=== PATIENT | male | born 1950 | race Caucasian/White ===

== ENCOUNTER 2023-05-29 14:08 | Outpatient (REF) | payer MEDICARE, OTHER, SELFPAY ==
[2023-05-29 16:13] LABS: Vitamin B12 486 pg/mL (200-900)
[2023-05-31 10:43] LABS: Lyme Abs Screen <0.90 index
== END 2023-05-29 14:09 | disposition home or self-care (01) ==
LOC: HO.LAB 14:08
PROVIDERS: PCP Internal Medicine; Visit Provider Psychiatry & Neurology Neurology
DX: G93.40 Encephalopathy, unspecified (principal)
CPT/HCPCS: 36415; 82607; 86617; 86618

== ENCOUNTER 2023-07-10 12:43 | Outpatient (REF) | payer MEDICARE, OTHER, SELFPAY ==
--- NOTE | ~2023-07-10 | MR_ITS ---
EXAMINATION: MR BRAIN WITHOUT CONTRAST CLINICAL INFORMATION: Encephalopathy. COMPARISON: No relevant prior imaging. TECHNIQUE: MRI of the brain was obtained using routine sequences without contrast. FINDINGS: There are scattered nonspecific foci of T2 FLAIR signal hyperintensity within the periventricular white matter. No acute territorial infarct. No pathological magnetic susceptibility artifact. Intracranial vascular flow voids are maintained. There is no intracranial mass effect or midline shift. No abnormal extra-axial collection. Lateral and third ventricles are normal. No hydrocephalus. Midline structures including the cervicomedullary junction are normal. No acute bone marrow signal changes. There are small bilateral mastoid tip effusions. Mild paranasal sinus disease primarily affecting the ethmoid air cells. Globes and orbits are symmetric. MR/MR head/brain wo con IMPRESSION: There are scattered chronic small vessel ischemic changes within the periventricular white matter. Otherwise unremarkable examination. No evidence of acute territorial infarct or hemorrhage. No intracranial mass effect or hydrocephalus.
== END 2023-07-10 12:44 | disposition home or self-care (01) ==
LOC: HO.MRI 12:43
PROVIDERS: PCP Internal Medicine; Visit Provider Psychiatry & Neurology Neurology
DX: G93.40 Encephalopathy, unspecified (principal)
CPT/HCPCS: 70551

== ENCOUNTER → 2023-08-22 09:39 | Day surgery (SDC) | payer MEDICARE, OTHER, SELFPAY ==
[2023-08-22 10:14] LABS: MANUAL DIFF FLAG NO
[2023-08-22 10:18] LABS: Basophils Absolute Auto 0.1 X10*3/uL (0.0-0.2); Basophils Percent Auto 0.4 % (0-2); Eosinophils Absolute Auto 0.2 X10*3/uL (0.0-0.4); Eosinophils Percent Auto 1.6 % (0-4); Hematocrit 47.6 % (42.0-52.0); Hemoglobin 15.7 g/dl (14.0-18.0); Imm Gran Abs Auto 0.09 X10*3/uL (0.00-0.03); Imm Gran Pct Auto 0.6 % (0.0-0.4); Lymphocytes Absolute Auto 2.5 X10*3/uL (1.2-4.9); Mean Corpuscular Hemoglobin 29.7 pg (27.0-33.0); Mean Corpuscular Volume 90.2 fL (80.0-98.0); Mean Platelet Volume 9.3 fL (9.4-12.4); Monocytes Absolute Auto 0.9 X10*3/uL (0.1-1.2); Monocytes Percent Auto 6.1 % (2-11); Neutrophils Absolute Auto 11.1 x10*3/uL (2.0-8.3); Neutrophils Percent Auto 74.3 % (45-73); Platelet Count 247 X10*3/uL (160-400); Red Blood Count 5.28 X10*6/uL (4.60-5.80); Red Cell Distribution Width 13.1 % (11.0-16.0); White Blood Count 14.9 X10*3/uL (4.8-10.8)
[2023-08-22 10:22] LABS: INTERNATIONAL NORM RATIO 1.2 (0.9-1.1); Prothrombin Time 14.9 SEC (11.1-13.3)
[2023-08-22 10:23] VITALS: BMI 37.7
[2023-08-22 10:25] LABS: Partial Thromboplastin Time 46.5 SEC (26.0-36.8)
== END ==
PROVIDERS: Physician Assistant Surgical; PCP Internal Medicine; Visit Provider Psychiatry & Neurology Neurology
DX: G31.84 Mild cognitive impairment of uncertain or unknown etiology (principal); Z53.8 Procedure and treatment not carried out for other reasons; Z79.899 Other long term (current) drug therapy; Z79.01 Long term (current) use of anticoagulants
CPT/HCPCS: 36415; 85025; 85610; 85730

== ENCOUNTER 2023-09-05 09:24 | Day surgery (SDC) | payer MEDICARE, OTHER, SELFPAY ==
--- NOTE | ~2023-09-05 | FL_ITS ---
FLUOROSCOPIC GUIDED LUMBAR PUNCTURE INDICATION: Cognitive impairment TECHNIQUE/FINDINGS: Risks and benefits and possible complications were discussed with the patient and the consent form was signed. Patient was placed prone on the fluoroscopy table. The back was prepped and draped in routine sterile fashion. Betadine was used as a skin antiseptic. Utilizing fluoroscopic guidance, the L3-4 interlaminar space was accessed with a 5 in, 22 gauge quinkie spinal needle and clear CSF fluid obtained. Opening pressure was 4 cm H2O. With Valsalva maneuvers, the pressure would increase to 8 cm H2O, then returned to 4 cm H2O upon relaxation. 8 cc of clear fluid was sent for analysis. The needle was removed without immediate complications. Total fluoroscopy time: 1 minute 44 seconds FL/FL guided lumbar puncture LP Impression: Successful fluoroscopic lumbar puncture. Opening pressure was 4 cm H2O, would increase to 8 cm H2O with Valsalva maneuvers, however not persist. This may indicate a myelographic block or high-grade spinal stenosis at or above the level of L3-L4. If clinically indicated, MRI of the lumbar spine could be entertained. This procedure was performed by Nigel May PA-C and supervised by Dr. Carrillo.
[2023-09-05 10:28] VITALS: BMI 37.6
[2023-09-05 10:47] LABS: INTERNATIONAL NORM RATIO 1.1 (0.9-1.1); Prothrombin Time 12.9 SEC (11.1-13.3)
[2023-09-05 12:15] VITALS: BP 118/67; PULSE 63; RESP 16; TEMP 36.8; O2SAT 96
[2023-09-05 12:35] LABS: CSF Appearance Clear, Colorless
[2023-09-05 12:36] LABS: CSF Tube # 1
[2023-09-05 12:45] VITALS: BP 117/62; PULSE 64; RESP 16; O2SAT 97
[2023-09-05 12:57] LABS: Glucose CSF 66 mg/dL
[2023-09-05 13:02] VITALS: BP 107/61; PULSE 63; RESP 16; TEMP 36.8; O2SAT 97
[2023-09-05 13:50] LABS: Appearance CSF HAZY; CSF Monos 50 %; CSF Tube # 4; Color CSF COLORLESS; Lymphocytes CSF 50 %; Red Blood Cell CSF 402 MM*3; White Blood Cell CSF 9 MM*3
[2023-09-05 13:54] LABS: Oligoclonal Serum Yes
[2023-09-10 12:13] LABS: Albumin 3.7 g/dL (3.6-5.1); IgG 1240 mg/dL (600-1540); IgG Synthesis Rate -6.6 mg/24 h (-9.9-3.3); IgG, CSF 2.6 mg/dL (0.8-7.7)
[2023-09-12 05:43] LABS: Oligoclonal Banding Absent (Absent)
== END 2023-09-05 13:15 | disposition home or self-care (01) ==
PROVIDERS: Physician Assistant Surgical; PCP Internal Medicine; Visit Provider Psychiatry & Neurology Neurology
PROC: 009U3ZZ Drainage of Spinal Canal, Percutaneous Approach (ICD-10-PCS; CPT 62270; principal; 2023-09-05 11:00)
DX: G31.84 Mild cognitive impairment of uncertain or unknown etiology (principal); E11.9 Type 2 diabetes mellitus without complications; F32.A Depression, unspecified; Z79.4 Long term (current) use of insulin; Z79.84 Long term (current) use of oral hypoglycemic drugs; Z79.01 Long term (current) use of anticoagulants
CPT/HCPCS: 36415; 62328; 82042; 82945; 83520; 83916; 84157; 85610; 87015; 87070; 87205; 89051

== ENCOUNTER → 2023-09-05 11:05 | Outpatient (BNV) | payer MEDICARE, OTHER, SELFPAY | PROVIDERS: PCP Internal Medicine; Visit Provider Physician Assistant Surgical | DX: G31.84 Mild cognitive impairment of uncertain or unknown etiology (principal) | CPT/HCPCS: 62328 ==

== ENCOUNTER 2024-11-18 08:33 | Outpatient (AMB) | payer MEDICARE, OTHER, SELFPAY ==
--- NOTE | 2024-11-18 08:36 | MHC.OFFVIS ---
Intake Visit Reasons: 6 mnts f/u Accompanied by: Son Allergies dulaglutide (From [facility]) Allergy (Verified 11/18/24 08:53) Nausea and Vomiting metformin Allergy (Verified 11/18/24 08:53) Nausea and Vomiting Medication List - Last Reconciled 11/18/24 by Rebecca Lacy CNP atorvastatin 10 mg PO BEDTIME carvedilol 6.25 mg PO BID citalopram (Celexa) 20 mg PO DAILY donepezil 10 mg PO BEDTIME glipizide 10 mg PO BID insulin aspart U-100 (Novolog FlexPen U-100 Insulin aspart) subcut insulin degludec (Tresiba FlexTouch U-100 insulin) 30 subcutaneously daily; lisinopril-hydrochlorothiazide 20-12.5 mg 1 tab PO DAILY magnesium oxide 400 mg PO BID omeprazole 20 mg PO DAILY pen needle, diabetic (BD Ultra-Fine Mini Pen Needle) semaglutide (Ozempic) 0.5 mg subcut QWEEK warfarin 5 - 10 mg PO DAILY HPI Comments Details: 74-year-old man with CAD s/p AR on Warfarin, and Alzheimer disease confirmed with CSF analysis with reduced ATI ratio. Leqembi is not considered because he is on warfarin that raises his risk of ICH. He was doing okay. Memory was about the same. He was forgetful at times and occasionally mixed up appointments. His family did not notice any significant changes in memory. He was living alone, doing housework without issue. No falls. He was staying active and enjoyed meeting up with friends for coffee and reading. Sleep was okay. Mood was okay. [facility] Medical History (Updated 11/18/24 @ 08:39 by Rebecca Lacy CNP) Alzheimer disease Cerebral microvascular disease MCI (mild cognitive impairment) Encephalopathy Review of Systems Const Denies chills, Denies daytime sleepiness, Denies difficulty sleeping, Denies fatigue, Denies fever(s), Denies frequent falls, Denies headache(s), Denies increased appetite, Denies poor appetite, Denies snoring, Denies weakness, Denies weight gain and Denies weight loss Eyes Denies loss of vision ENT Denies vertigo, Denies dizziness and Denies headache(s) Card Denies chest pain at rest, Denies chest pain with activity, Denies syncope, Denies leg edema and Denies palpitations Resp Denies snoring GI Denies constipation, Denies heartburn, Denies diarrhea and Denies nausea Denies urinary frequency, Denies urinary incontinence and Denies urinary urgency Musc Denies abnormal gait, Denies numbness and Denies tingling Skin/Breast Denies dry skin and Denies rash Neuro Denies abnormal gait, Denies vertigo, Denies dizziness, Denies syncope, Denies frequent falls, Denies headache(s), Denies lack of coordination, Denies loss of vision, Reports memory loss, Denies numbness, Denies restless legs, Denies seizure-like activity, Denies tingling, Denies paresthesias, Denies tremor(s) and Denies weakness Psych Denies anxiety, Denies depression, Denies auditory hallucinations, Reports memory loss, Denies visual hallucinations and Denies suicidal ideation Endo Denies fatigue and Denies palpitations Physical Exam Const Other: General Appearance:? normal, in no acute distress. Skin:? no rashes, no significant birthmarks. Heart:? S1, S2 normal, no murmurs. Lungs:? clear anteriorly and posteriorly. Extremities:? no edema. Psych:? alert, cooperative with exam. Neuro Other: Mental Status:?Alert. Normal affect. Speech fluency was somewhat diminsihed Cranial Nerves:?Pupils are equal, round and reactive to light. External occular muscles are intact. Visual tamayo are full. Mild L ptosis. Face is symmetrical. Facial sensations are normal. Tongue is midline. Palate elevates symmetrically. Shoulder shrugging is normal. Hearing to bedside conversation is normal. Sensory Exam:?....? Coordination:?No ataxia,?no titubation.? Gait Exam: Within normal limits. Cerebellar Signs:?Oejlip-vp-dtan and rliy-hy-wdry is normal.? Extrapyramidal System:?No tremor, rigidity with normal facial expressions.? Pronator Drift:?Not present.? Involuntary Movements:?No tremors seen.? Speech:?Normal.? Results Reviewed Results Reviewed: MRI brain WO at [facility] in Jun 2023: Mild MVD LP at [facility] in August 2023: OP 8cm, WBCs 9, RBCs 402, Glu 66, Pro 36, OCBs absent, AD test + (reduced A-beta 42 to T-tau and elevated P-tau Assessment & Plan Assessment & Plan (1) Alzheimer disease: Code(s): G30.9 - Alzheimer's disease, unspecified; F02.80 - Dementia in other diseases classified elsewhere, unspecified severity, without behavioral disturbance, psychotic disturbance, mood disturbance, and anxiety Category: Medical Plan: Continue donepezil 10mg 1 tablet at bedtime. He was not interested in memantine at this time. Stay physically and socially active. Coding Level of Care Code Est Pt Level 3 (56447) Diagnoses Alzheimer disease G30.9; F02.80
--- OUTSIDE RECORDS SUMMARY | 2024-11-18 08:50 | XMS_ITS | Clinical Summary ---
Author Organization [address] Address [address] [place] [phone] Phone Care Team Providers Care Tile Sorter Name Role Phone Alee Toledo MD Primary Care Provider [phone] Allergies Active Allergy Reactions Criticality Noted Date Comments Dulaglutide 11/17/2019 Metformin Diarrhea,Hives,Nausea And Vomiting High 0 01/13/2021 Medications aspirin 81 mg EC tablet Take 1 Tab by mouth daily. 03/05/20 18 Active chlorhexidine (PERIDEX) 0.12 % solution Take 15 mL by mouth 2 times daily. Active citalopram (CeleXA) 20 mg tablet Take 1 Tab by mouth daily. 06/02/19 21 Active fluticasone propionate (FLONASE) 50 mcg/actuation nasal spray 1-2 SPRAYS BY INTRANASAL ROUTE EVERY DAY IN EACH NOSTRIL NEEDED 11/04/19 22 Active Glucagon HCl, rDNA, (Glucagon Emergency Kit, human,) 1 mg injection Use as needed for hypoglycemia 06/02/19 23 Active omeprazole (PriLOSEC) [address] capsule Take 10 mg by mouth 1 (one) time each day. 12/13/19 22 Active donepeziL (ARICEPT) 10 mg tablet Take 1 tablet (10 mg total) by mouth at bedtime. 05/13/19 25 Active insulin degludec (Tresiba FlexTouch U-100) 100 unit/mL (3 mL) injection pen Inject 30 Units under the skin 2 (two) times a day. Inject 30 Units into the skin 2 times daily (with meals). If needed go up by 2 units twice a day every week if BS above 150. Max dose 60 units twice a day 45 mL 05/14/19 25 Active atorvastatin (LIPITOR) 10 mg tabletIndicati ons:Hyperlipid emia, unspecified Take 1 tablet (10 mg total) by mouth at bedtime. 90 tablet 07/05/19 25 Active magnesium oxide (MAG-OX) 400 mg (241.3 elemental magnesium) tablet Take 1 tablet (400 mg total) by mouth 1 (one) time each day. 90 tablet 07/05/19 25 Active pen needle, diabetic (Pen Needle) 31 gauge x 5/16 needleIndicati ons:Type 2 diabetes mellitus with diabetic microalbuminur ia, with long-term current use of insulin ([facility] V24, CMS/[facility] V28) Inject 1 each under the skin 5 (five) times a day. Insulin Pen Needle (B-D U/F PEN NEEDLE) 31G X 5 MM [facility] USE 1 NEEDLE TO INJECT INSULIN 5 TIMES A DAY 200 each 07/09/19 25 Active carvediloL (COREG) 6.25 mg tabletIndicati ons:Left ventricular apical thrombus,Mild early onset Alzheimer's dementia, unspecified whether behavioral, psychotic, or mood disturbance or anxiety (CMS/HCC V24, CMS/[facility] V28),Ischemic cardiomyopathy ,ICD (implantable cardioverter-d efibrillator), single, in situ TAKE (1) TABLET BY MOUTH TWICE A DAY WITH MEALS. 60 tablet 07/17/19 25 Active insulin aspart (NovoLOG FlexPen) 100 unit/mL (3 mL) injection pen INject 3 times a day with meals per sliding scale: 100-150: 8 units; 150-200: 13 units; 201-250: 18 units; 250-300: 23 units; 301-350: 28 units; 351-400: 33 units Max daily dose 93 units 45 mL 07/19/19 25 Active semaglutide (OZEMPIC) 0.25 mg or 0.5 mg (2 mg/3 mL) injection pen INITIATION: 0.25 mg once weekly for 4 weeks followed by 0.5 mg once weekly for AT LEAST 4 weeks. MAINTENANCE: Continue 0.5 mg once weekly OR start 1 mg once weekly (via 1 mg/dose pen) if further glycemic control is needed; may further increase to 2 mg once weekly (via 2 mg/dose pen) after 4 weeks on the 1 mg/week dose if needed to achieve glycemic goals. 3 mL 3 08/21/19 25 Active enoxaparin (LOVENOX) 120 mg/0.8 mL syringe injection Inject 0.8 mL (120 mg total) under the skin every 12 (twelve) hours. 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 200 each 3 09/20/19 25 Active empagliflozin (Jardiance) 10 mg tabletIndicati ons:Ischemic cardiomyopathy ,Chronic systolic congestive heart failure (CMS/HCC V24, CMS/HCC V28),ICD (implantable cardioverter-d efibrillator), single, in situ TAKE (1) TABLET BY MOUTH DAILY IN THE MORNING 30 tablet 6 10/07/19 25 Active warfarin (COUMADIN) 5 mg tablet TAKE 1 TABLET BY MOUTH EVERY DAY DIRECTED.TAKE AT SAME TIME DAILY.DONT CHANGE DIETARY HABITS 90 tablet 3 11/12/19 25 Active warfarin (COUMADIN) 5 mg tablet TAKE 1 TABLET BY MOUTH EVERY DAY DIRECTED.TAKE AT SAME TIME DAILY.DONT CHANGE DIETARY HABITS 90 tablet 3 06/27/19 25 025 Discontinued Active Problems Problem Noted Date Diagnosed Date Medication noncompliance due to cognitive impair ment 06/24/2024 Assessment & Plan (07/28/2024 9:58 PM EDT): Much improved at the present time secondary to use of pill packs prepared by Liza; we will continue to readdress this at subsequent visits. The patient's sister was encouraged to continue looking into home services that may help support the patient further as his Alzheimer's progresses. Assessment & Plan (06/24/2024 11:46 PM EST): The patient, his sister, and I had a very lengthy discussion today regarding what appears to be medication mismanagement secondary to his cognitive decline. He has no problem discussing this; he offers many reasons why medications are not present today as well as where they are not loaded into his pillbox is correctly but his sister ultimately feels as though he is either forgetting to load them, is loading them incorrectly, or is not obtaining medications. He is still managing his own medications and we discussed alternatives for this; there seems to be some reluctance by his sister to manage this out of fear that he will react negatively to her as a result or she won't be able to be present at times to manage them as needed. We discussed outside agencies that may be able to assist such as with visiting nurses as well as other supports that may be best initiated so that he is able to remain as independent as possible for as long as possible. They will reach out to his PCP and senior services for further support regarding this, contacting our office as needed for further assistance. I have provided them with carefully written instructions today regarding his cardiac medications as outlined below. ICD (implantable cardioverte r-defibrillator), single, in situ 05/20/2024 Assessment & Plan (07/28/2024 9:58 PM EDT): Continue with in office and remote device checks as per device clinic protocol. Assessment & Plan (06/24/2024 11:46 PM EST): Continue with in office and remote device checks as per device clinic protocol.Orders: empagliflozin (JARDIANCE) 10 mg tablet; Take 1 tablet (10 mg total) by mouth 1 (one) time each day in the morning. carvediloL (COREG) 6.25 mg tablet; Take 1 tablet (6.25 mg total) by mouth 2 (two) times a day with meals. Anxiety and depression 01/31/2024 CAD (coronary artery disease) 01/31/2024 Overview (07/28/2024): History CA age 44 s/p stent - Cardiology Dr. Schmidt Assessment & Plan (07/28/2024 9:58 PM EDT): The patient remains active on a regular basis and offers no symptoms to cause concern for underlying ischemia within his current functional capacity. We will continue cardioprotective medical therapies including carvedilol which he appears to be tolerating well, in addition to atorvastatin and daily ASA. The patient was advised to seek emergent medical attention by calling 911 if they were to develop severe dyspnea, chest pain that did not resolve with rest, or if they were to faint. Assessment & Plan (06/24/2024 11:46 PM EST): The patient remains active on a regular basis and offers no symptoms to cause concern for underlying ischemia within his current functional capacity. We will continue cardioprotective medical therapies including carvedilol as discussed above in addition to atorvastatin and daily ASA. The patient was advised to seek emergent medical attention by calling 911 if they were to develop severe dyspnea, chest pain that did not resolve with rest, or if they were to faint. Orders: carvediloL (COREG) 6.25 mg tablet; Take 1 tablet (6.25 mg total) by mouth 2 (two) times a day with meals. DM (diabetes mellitus), type 2 with renal complications ([facility] V24, [facility] V28) 01/31/2024 Assessment & Plan (05/28/2024 1:29 PM EST): Orders: Hemoglobin A1c; Future Magnesium; Future GERD (gastroesophageal reflux disease) Primary hypertension 01/31/2024 Assessment & Plan (07/28/2024 9:58 PM EDT): Blood pressure is favorable on current medical therapy; now that his medications are prepackaged for him, he appears to be more consistent with carvedilol. We are planning to update a basic metabolic panel within the next 1 to 2 weeks to reevaluate his renal function and electrolytes; if this remains stable, in line with guideline directed medical therapies for heart failure, we may consider the reintroduction of Entresto and we will continue to readdress this in short interval follow-up indicated. Orders: Basic metabolic panel; Future Assessment & Plan (06/24/2024 11:46 PM EST): Blood pressure is favorable on current medications; unfortunately, the consistency of this regimen is bit unclear as discussed above. We will have him continue with carvedilol alone at this time to see how he tolerates this prior to the reintroduction of any other additional therapies. We will continue to readdress this in short interval follow-up. Assessment & Plan (05/28/2024 1:29 PM EST): Orders: Hemoglobin A1c; Future Magnesium; Future Obesity 01/31/2024 Assessment & Plan (07/28/2024 9:58 PM EDT): The patient is obese. Approaches towards weight loss are discussed, including burning more calories than one takes in by portion control and regular exercise with an emphasis on duration rather than intensity. Assessment & Plan (06/24/2024 11:46 PM EST): The patient is obese. Approaches towards weight loss are discussed, including burning more calories than one takes in by portion control and regular exercise with an emphasis on duration rather than intensity. ANIBAL on CPAP 01/31/2024 Overview (01/31/2024): Last Assessment & Plan: Encouraged improved compliance with CPAP; follow-up with sleep medicine provider as needed. Assessment & Plan (05/28/2024 1:29 PM EST): NSVT (nonsustained ventricul ar tachycardia) ([facility] V24, [facility] V28) 09/25/2023 Overview (01/31/2024): Last Assessment & Plan: Single episode in July 2023 of slow ventricular tachycardia lasting 13 beats, self terminated; labs were unrevealing at that time. Continue to monitor for new device alerts. Venous insufficiency 09/25/2023 Overview (01/31/2024): Last Assessment & Plan: Encouraged compression, elevation, and to continue following low-sodium diet. Alzheimer's dementia ([facility] V24, CMS/[facility] V28) 09/21/2023 Overview (01/31/2024): Last Assessment & Plan: The patient is being followed closely by neurology; potential trial of medication called Reba with Dr. Mccollum is in the works. This is a touchy subject for the patient; the patient's sister reports that he was having hallucinations that the patient reports her quite real to him. They were not witnessed by anybody else and he does not understand how people can be calling them hallucinations. Support and encouragement was continued; continue to follow-up with neurology as recommended. Cognitive decline 04/04/2023 Left ventricular apical thrombus 12/05/2022 Overview (01/31/2024): Last Assessment & Plan: I discussed with the patient and his sister that at this time, we will continue with Coumadin for management of his LV apical thrombus. If Leqembi does in fact get approved, we will readdress the need to switch from warfarin to Eliquis 2.5 mg twice daily. The patient's sister reports that she was really overwhelmed when she talked to Dr. Schmidt previously; we reviewed the risks and benefit of continuing with Coumadin versus transitioning to Eliquis 2.5 mg twice daily. Given that he only had 1 isolated episode of atrial fibrillation, reduced dosing of Eliquis 2.5 mg twice daily does appear more appropriate given the increased risk of intracranial hemorrhage with this new medication. His sister will call the office once they know whether or not this medication has been approved. He appears to continue to tolerate Coumadin well; he offers no adverse effects with inappropriate bleeding or bruising. He is aware to seek emergent medical attention for any uncontrolled bleeding, signs or symptoms of GI or other internal bleeding, or for any head injury. Continue with Coumadin at this time; INR checks with our Coumadin clinic as directed. Assessment & Plan (06/24/2024 11:46 PM EST): Continue warfarin as per INR results; anticoagulation managed by our office. Ischemic cardiomyopathy 03/31/2022 Assessment & Plan (07/28/2024 9:58 PM EDT): The patient's most recent echocardiogram was completed in November 2022 revealing an EF of 25 to 30%; at the time of this echocardiogram, he already had an ICD in place for primary prevention of sudden cardiac . The patient appears euvolemic on exam today and offers no symptoms to cause concern for overt heart failure or underlying ischemia. As outlined above, at his last visit there appeared to be ongoing difficulties with managing his medications due to his progressive Alzheimer's. Since our last visit, his sister has assisted him with having his medications bubble packed by Hiren and Mauro which has helped significantly. We had an in-depth discussion today regarding the 4 pillars of guideline directed medical therapies for heart failure as well as their mechanism of action and potential adverse effects. He will restart Jardiance in addition to carvedilol which he appears to be tolerating well; should any new adverse effects arise after restarting Jardiance, his sister will contact the office for further instruction and she will continue to check in with him about this. We will plan to recheck labs in about 1-2 weeks; if renal function and electrolytes remain stable and he has tolerated the reintroduction of Jardiance well, we will plan to reintroduce low dose Entresto as well. He does not have a blood pressure cuff at home so will need an office follow-up at least with a nurse visit if this is reinitiated. If he is unable to tolerate Entresto due to resulting hypotension or for any other reason, we may consider starting an ARB alone. We will continue to optimize GDMT with the potential addition of an MRA and/or titration of current GDMT to maximally tolerated dosing, at which point we will repeat an echocardiogram unless the situation arises where this needs to be completed sooner. We discussed risk reduction through lifestyle modifications including healthy diet, routine exercise, and weight management. We reviewed heart failure management including low-sodium diet, symptom surveillance, daily weights, and medication compliance. I've asked the patient to call if they develop worsening symptoms of heart failure such as increased shortness of breath, new or worsening cough, increased swelling in the legs or ankles, or weight gain of more than 2 pounds in one day or 4 pounds in one week. Assessment & Plan (06/24/2024 11:46 PM EST): The patient appears euvolemic on exam today and offers no symptoms to cause concern for overt heart failure. As outlined above, there appears to be ongoing difficulties with managing his medications and his sister has agreed to assist with this while services are being implemented. We have discussed the need for consistent administration of both carvedilol 6.25 mg twice daily and Jardiance 10 mg daily prior to optimization or the addition of any other guideline directed medical therapies for heart failure. Should he tolerate already is consistently, consider the addition of low-dose Entresto or ACEI/ARB in the near future. We will continue to readdress this with short interval follow up. I've asked the patient to call if they develop worsening symptoms of heart failure such as increased shortness of breath, new or worsening cough, increased swelling in the legs or ankles, or weight gain of more than 2 pounds in one day or 4 pounds in one week. Orders: empagliflozin (JARDIANCE) 10 mg tablet; Take 1 tablet (10 mg total) by mouth 1 (one) time each day in the morning. carvediloL (COREG) 6.25 mg tablet; Take 1 tablet (6.25 mg total) by mouth 2 (two) times a day with meals. Old anterior myocardial infarction 03/31/2022 Assessment & Plan (06/24/2024 11:46 PM EST): Paroxysmal atrial fibrillation ([facility] V24, [facility] V28) 03/31/2022 Assessment & Plan (06/24/2024 11:48 PM EST): No symptoms to suggest recurrence of atrial fibrillation. Rate appears well-controlled questionably on carvedilol; we will continue to monitor this at subsequent visits. He is anticoagulated on warfarin given his history of apical thrombus; INRs continue to be managed by our anticoagulation clinic. Orders: carvediloL (COREG) 6.25 mg tablet; Take 1 tablet (6.25 mg total) by mouth 2 (two) times a day with meals. Assessment & Plan (05/28/2024 1:29 PM EST): Chronic congestive heart failure (CMS/[facility] V24, [place]/[facility] V28) 11/28/2019 Assessment & Plan (07/28/2024 9:58 PM EDT): Orders: Basic metabolic panel; Future Assessment & Plan (06/24/2024 11:46 PM EST): Orders: empagliflozin (JARDIANCE) 10 mg tablet; Take 1 tablet (10 mg total) by mouth 1 (one) time each day in the morning. carvediloL (COREG) 6.25 mg tablet; Take 1 tablet (6.25 mg total) by mouth 2 (two) times a day with meals. Assessment & Plan (05/28/2024 1:29 PM EST): Allergic rhinitis 03/05/2018 Hyperlipidemia 03/05/2018 Assessment & Plan (07/28/2024 9:58 PM EDT): The patient's most recent lipid panel was completed April 2024 with an LDL of 14; goal for this patient was a history of coronary artery disease as well as diabetes is less than 55. Continue atorvastatin 10 mg daily. However, his triglycerides were elevated than previous at 357; lifestyle modifications to assist with reduction in triglycerides were recommended including low carbohydrate diet and increased activity as tolerated. Most recent A1c was noted to be elevated at 9.2% as well and he continues to work on improved glycemic control, which ultimately will help to improve his triglycerides as well. Assessment & Plan (06/24/2024 11:48 PM EST): The patient's most recent lipid panel was completed April 2024 with an LDL of 14 goal for this patient was a history of coronary artery disease as well as diabetes is less than 55. Continue atorvastatin 10 mg daily. However, his triglycerides were elevated than previous at 357; lifestyle modifications to assist with reduction in triglycerides were recommended including low carbohydrate diet and increased activity as tolerated. Microalbuminuria 08/07/2014 Known medical problems 03/31/2014 Overview (01/31/2024): Varicose veins Esophageal ulcer 10/03/2013 Proteinuria 04/03/2013 Benign colonic polyp 01/15/2013 Encounters Date Type Department Care Team Description 11/03/2024 Anticoagulation - Warfarin Visit [facility] - [facility] [address] [place] [address] Alex Schmidt MD Left ventricular apical thrombus (Primary Dx) 10/22/2024 Anticoagulation - Warfarin Visit [facility] - [address] [place] [address] Alex Schmidt MD Left ventricular apical thrombus (Primary Dx) 10/01/2024 Anticoagulation - Warfarin Visit [facility] - [address] [place] [address] Alex Schmidt MD Left ventricular apical thrombus (Primary Dx) 09/17/2024 Anticoagulation - Warfarin Visit [facility] - [address] [place] [address] Alex Schmidt MD Left ventricular apical thrombus (Primary Dx) 09/10/2024 Anticoagulation - Warfarin Visit [facility] - [address] [place] [address] Alex Schmidt MD Left ventricular apical thrombus (Primary Dx) 09/04/2024 1:25 PM EDT Ancillary Procedure [facility] - [address] [place] [address] 09/03/2024 Anticoagulation - Warfarin Visit [facility] - [address] [place] [address] Alex Schmidt MD Left ventricular apical thrombus (Primary Dx) 08/27/2024 Anticoagulation - Warfarin Visit [facility] - [address] [place] [address] Alex Schmidt MD Left ventricular apical thrombus (Primary Dx) 08/25/[address] [address] Hazel Lynn PA Medication Reaction 08/25/2024 Anticoagulation - Warfarin Visit [facility] - [address] [place] [address] Alex Schmidt MD Left ventricular apical thrombus (Primary Dx) 08/20/2024 10:00 AM EDT Office Visit Endocrinology - [address] [address] Hazel Lynn PA Type 2 diabetes mellitus with other kidney complication, unspecified whether rn long term care insulin use ([facility] V24, [facility] V28) (Primary Dx) from Last 3 Months Immunizations Name Administration Dates Next Due Influenza trivalent, 0.5mL ( Fluzone High-dose) 65yo and older 03/01/2019 Influenza trivalent, 0.5mL, preservative free (Fluarix; FluLaval; Fluzone) ages 6mo and older (Afluria) 3 years and older 01/25/2015,03/31/2014,04/03/2013,04/28 Influenza trivalent, with pr eservative (Fluzone; Afluria) 6mo and older 02/16/2016 Pneumococcal conjugate 13 va lent (Prevnar 13, PCV13) 2mo and older 04/12/2017 Pneumococcal conjugate 20 va lent (Prevnar 20, PCV 20) 2mo and older 08/14/2023 Pneumococcal polysaccharide 23 valent (Pneumovax 23) 2yo and older 03/05/2018 Zoster Live 01/07/2015 Surgical History Surgery Date Site/Laterality Comments SHOULDER ARTHROSCOPY -2006 Left PROCEDURE: [place] SURGICAL ARTHROSCOPY SHOULDER W/LSS&RESCJ ADS; COMMENT: done [place] SHOULDER ARTHROSCOPY -2012 Right PROCEDURE: [place] SURGICAL ARTHROSCOPY SHOULDER W/LSS&RESCJ ADS; COMMENT: Dr. Carnes OTHER SURGICAL HISTORY PROCEDURE: [place] PATIENT HAS A CORONARY ARTERY STENT; COMMENT: age 44 OTHER SURGICAL HISTORY Left PROCEDURE: [place] STRABISMUS PREVIOUS EYE X INVOLVE EO MUSC; COMMENT: age 7 surgery on left eye muscles VARICOSE VEIN SURGERY -2013 Right PROCEDURE: [place] LIGJ DIVJ &/EXCJ VARICOSE VEIN CLUSTER 1 LEG; COMMENT: right leg - Dr. Gayle at [facility] TONSILLECTOMY PROCEDURE: HISTORICAL TONSILLECTOMY CATARACT EXTRACTION Bilateral PROCEDURE: HISTORICAL CATARACT REMOVAL; COMMENT: 04/01/18, 03/18/18 COLONOSCOPY PROCEDURE: HISTORICAL COLONOSCOPY OTHER SURGICAL HISTORY PROCEDURE: HISTORICAL SQUAMOUS CELL CA; COMMENT: [facility] 12/14 anterior scalp (well differentiated) Cortez Bass MD JEREMI Medical History Medical History Date Comments Morbid obesity with BMI of 4 0.0-44.9, adult ([facility] V24, [facility] V28) DX:Morbid obesity wit h BMI of 40.0-44.9, adult ([facility]) ANIBAL on CPAP DX:ANIBAL on CPAP HTN (hypertension) DX:HTN (hyper tension) GERD (gastroesophageal reflux disease) DX:GERD (gastroesophageal reflux disease) Anxiety and depression DX:Anxiet y and depression CAD (coronary artery disease) DX :CAD (coronary artery disease); COMMENT: History CA age 44 s/p stent DM (diabetes mellitus), type 2 with renal complications ([facility] V24, [facility] [facility] DX:DM (diabetes mellitus), t ype 2 with renal complications ([facility]) Allergic rhinitis 03/05/2018 DX:Allergic rh initis Benign colonic polyp 01/15/2013 DX:Benign c olonic polyp Esophageal ulcer 10/03/2013 DX:Esophageal u lcer Hyperlipidemia 03/05/2018 DX:Hyperlipidemi a Microalbuminuria 08/07/2014 DX:Microalbumin uria Proteinuria 04/03/2013 DX:Proteinuria Varicose veins 03/31/2014 DX:Varicose vein s History of squamous cell car cinoma of skin 06/30/2020 DX:History of squamous cell carcinoma of skin; COMMENT: SCC 12/14 anterior scalp (well differentiated) Cortez Bass MD JEREMI Family History Medical History Relation Name Comments Other cancer Father Relation Name Status Comments Father Social History Tobacco Use Types Packs/Day Years Used Date Smoking Tobacco: Never Smokeless Tobacco: Never Tobacco Cessation:Counseling Given: Not Answered Alcohol Use Standard Drinks/Week Comments Yes 0 (1 standard drink = 0.6 oz pur e alcohol) Sex and Gender Information Value Date Recorded Sex Assigned at Not on file Legal Sex Male 4:30 PM EST Gender Identity Not on file Sexual Orientation Not on file Obstetrics History Last Filed Vital Signs Vital Sign Reading Time Taken Comments Blood Pressure 104/60 08/20/2024 10:16 AM EDT C Pulse 66 08/20/2024 10:16 AM EDT Temperature 35.8 C (96.5 F) 08/20/2024 10:16 AM EDT Respiratory Rate - - Oxygen Saturation 97% 08/20/2024 10:16 AM EDT Inhaled Oxygen Concentration - - Weight 121 kg (267 lb 12.8 oz) 08/20/2024 10:16 AM EDT Height 179.1 cm (5' 10.5 ) 08/20/2024 10:16 AM E DT Body Mass Index 37.88 08/20/2024 10:16 AM EDT Plan of Treatment Upcoming Encounters Date Type Department Care Team (Late st Contact Info) Description 11/20/2024 10:00 AM EDT Ancillary Procedure [facility] Cardiology [facility] [address] [facility] [address] [place] [address] 11/27/2024 8:40 AM EDT Office Visit [facility] [address] [facility] [address] [place] [address] Sonal Steiner NP [address] [facility] [address] [place] [address] 11/27/2024 3:30 PM EDT Office Visit Internal Medicine - [place] [address] [facility] [address] [place] [phone] Alee Toledo MD 175 [facility] [address] [place] [phone] 12/24/2024 8:45 AM EDT Office Visit Endocrinology [address] [phone] Hazel Lynn PA [address] [place] [address] Health Maintenance Due Date Last Done Comments COVID-19 Vaccine (#1) 1957 Diabetes: Annual Foot Exam 1962 DTaP,Tdap,and Td Vaccines (1 - Tdap) 09/16/1971 RSV Immunization Adult Patients (1 - Risk 60-74 years 1-dose series) 2012 Zoster Vaccines (1 of 2) 03/04/2015 01/07/2015 Hepatitis C Screening 04/08/2022 Social Influencers of Health Screening 04/08/2022 Colorectal Cancer Screening: Colonoscopy 03/17/2023 03/17/2013 Diabetes: Annual Retina Eye Exam 04/18/2024 04/18/2023 Influenza Vaccine (#1) 2024 9, 02/16/2016, 01/25/2015, Additional history exists Diabetes: Blood Sugar Control Test (HGBA1C) 05/06/2025 11/03/2024, 07/15/2024, 05/15/2024, Additional history exists Diabetes: Annual Urine Albumin-Creatinine Ratio (uACR) 05/15/2025 05/15/2024, 11/11/2021 Falls Risk Assessment 05/28/2025 05/28/2024, 024 Medicare Annual Wellness Visit 05/28/2025 05/28/2024 Diabetes: Annual GFR (Glomerular Filtration Rate) 08/11/2025 08/11/2024, 08/04/2024, 05/27/2024, Additional history exists Hypertension/CHF/CAD Annual BMP Blood Test 08/11/2025 08/11/2024, 08/04/2024, 05/27/2024, Additional history exists Cholesterol Screening (Lipid Panel) 05/15/2029 05/15/2024, 09/26/2023, 09/26/2023 Pneumococcal Vaccine: 50+ Years Completed 08/14/2023, 03/05/2018, 04/12/2017 Depression Screening Completed 05/28/2024, 04/04/20 23 HIB Vaccines Aged Out No longer eligi ble based on patient's age to complete this topic HPV Vaccines Aged Out No longer eligi ble based on patient's age to complete this topic Hepatitis A Vaccines Aged Out No long er eligible based on patient's age to complete this topic Hepatitis B Vaccines Aged Out No long er eligible based on patient's age to complete this topic IPV Vaccines Aged Out No longer eligi ble based on patient's age to complete this topic MMR Vaccines Aged Out No longer eligi ble based on patient's age to complete this topic Meningococcal ACWY Vaccine Aged Out N o longer eligible based on patient's age to complete this topic Meningococcal B Vaccine Aged Out No l onger eligible based on patient's age to complete this topic RSV Immunization Patients Under 20 months Aged Out No longer eligible based on patient's age to complete this topic Varicella Vaccines Aged Out No longer eligible based on patient's age to complete this topic Medical Devices Implanted Type Area Endoscopy Support Specialist Device Identifier Shelf Expiration Date Model / Serial / Lot Tomer-Darlene Acticor 7 Vr-T Dx [id number] Implanted:10/28 (Quantity not on file) Cardiac ICD [employer] ACTICOR 7 VR-T DX / [id number] / Procedures Procedure Name Priority Date/Time Associated Diagnosis Comments PROTHROMBIN TIME WITH INR Routine 11/03/2024 8:49 AM EDT Left ventricular apical thrombus HEMOGLOBIN A1C Routine 11/03/2024 8:49 AM EDT Type 2 diabetes mellitus with other kidney complication, unspecified whether residential insulin use ([facility] V24, CMS/[facility] V28) PROTHROMBIN TIME WITH INR Routine 10/22/2024 7:46 AM EDT Left ventricular apical thrombus PROTHROMBIN TIME WITH INR Routine 10/01/2024 7:56 AM EDT Left ventricular apical thrombus PROTHROMBIN TIME WITH INR Routine 09/17/2024 7:44 AM EDT Left ventricular apical thrombus PROTHROMBIN TIME WITH INR Routine 09/10/2024 7:43 AM EDT Left ventricular apical thrombus CARDIAC DEVICE CHECK- REMOTE- MURJ Routine 09/04/2024 1:22 PM EDT PROTHROMBIN TIME WITH INR Routine 09/03/2024 7:46 AM EDT Left ventricular apical thrombus PROTHROMBIN TIME WITH INR Routine 08/27/2024 8:23 AM EDT Left ventricular apical thrombus HEPATIC FUNCTION PANEL Routine 08/27/2024 8:23 AM EDT Type 2 diabetes mellitus with other kidney complication, unspecified whether residential insulin use (CMS/HCC V24, CMS/HCC V28) PROTHROMBIN TIME WITH INR Routine 08/25/2024 8:05 AM EDT Left ventricular apical thrombus POC GLUCOSE Routine 08/20/2024 10:53 AM EDT Type 2 diabetes mellitus with other kidney complication, unspecified whether rn long term care insulin use ([facility] V24, [facility] V28) BASIC METABOLIC PANEL Routine 08/11/2024 7:39 AM EDT Medication course changed MICROALBUMIN CREATININE URINE RATIO Routine 05/15/2024 7:36 AM EST Type 2 diabetes mellitus with stage 3 chronic kidney disease, unspecified whether rn long term care insulin use, unspecified whether stage 3a or 3b CKD ([facility] V24, [facility] V28) LIPID PANEL WITH REFLEX TO DIRECT LDL Routine 05/15/2024 7:36 AM EST Type 2 diabetes mellitus with stage 3 chronic kidney disease, unspecified whether rn long term care insulin use, unspecified whether stage 3a or 3b CKD ([facility] V24, [facility] V28) FALLS RISK ASSESSMENT Routine 08/14/2023 DIABETES EYE EXAM Routine 04/18/2023 DEPRESSION SCREENING Routine 04/04/2023 COLONOSCOPY Routine 03/17/2013 from Last 3 Months or Most Recently Relevant to Health Maintenance Results * (ABNORMAL) Prothrombin time with INR (11/03/2024 8:49 AM EDT) Only the most recent of8 resultswithin the time period is included. Protime 25.5(H) 10.6 - 13.9 sec LAB COAGULATION METHOD 11/03/2024 9:33 AM EDT [facility] INR 2.1 LAB COAGULATION METHOD 11/03/2024 9:33 AM T [facility] Blood Venous blood specimen / Unknown Venipuncture / Unknown 11/03/2024 8:49 AM EDT 11/03/2024 9:24 AM EDT us Alex Schmidt MD LAB BLOOD ORDERABLES Final Resu lt Performing Organization Address City/[facility]/ZIP Co de Phone Number [facility] [address] [place] [address], [place] [phone] * (ABNORMAL) Hemoglobin A1c (11/03/2024 8:49 AM EDT) Hemoglobin A1C 8.3(H) <6.5 % LAB CHEMISTRY METHOD 11/03/2024 12:49 PM EDT [facility] Mean Bld Glu Estim. 192 mg/dL LAB CHEMISTRY METHOD 11/03/2024 12:49 PM EDT [facility] Blood Venous blood specimen / Unknown Venipuncture / Unknown 11/03/2024 8:49 AM EDT 11/03/2024 9:24 AM EDT us Hazel PASTRANA LAB BLOOD ORDERABLES Final Result Performing Organization Address [facility]/ZIP Co de Phone Number [facility] [address] [place] [address], [place] [phone] * Cardiac device check - Remote- MURJ (09/04/2024 1:22 PM EDT) Date Time Interrogation Session [id number] CV DEVICE CHECK Type Interrogation Session RemoteScheduled CV DEVICE CHECK Implantable Pulse Generator Endoscopy Support Specialist BIO CV DEVICE CHECK Implantable Pulse Generator Type ICD CV DEVICE CHECK Implantable Pulse Generator Model Acticor 7 VR-T DX CV DEVICE CHECK Implantable Pulse Generator Serial Number [id number] CV DEVICE CHECK Implantable Pulse Generator Implant Date [id number] CV DEVICE CHECK Battery Remaining Percentage 84.00 CV DEVICE CHECK Battery Voltage 3.110 CV D EVICE CHECK Battery SINGING TELEGRAM PERFORMER Trigger 2.850 CV DEVICE CHECK Battery Status Middle of Service CV DEVICE CHECK Capacitor Charge Time 9.300 CV DEVICE CHECK Arias Statistic RV Percent Paced 0.00 CV DEVICE CHECK Atrial Tachy Statistic AT/AF [place] Percent 0.00 CV DEVICE CHECK Lead Channel Sensing Intrinsic Amplitude 4.700 CV DEVICE CHECK Lead Channel Setting Sensing Sensitivity 0.40 CV DEVICE CHECK Lead Channel RA Pacing Threshold Date 2024-08-22 CV DEVICE CHECK Lead Channel Sensing Intrinsic Amplitude 18.300 CV DEVICE CHECK Lead Channel Setting Sensing Sensitivity 0.80 CV DEVICE CHECK Lead Channel Impedance Value 600 CV DEVICE CHECK Lead Channel Pacing Threshold Amplitude 0.800 CV DEVICE CHECK Lead Channel Pacing Threshold Pulse Width 0.4 CV DEVICE CHECK Lead Channel RV Pacing Threshold Date 2024-08-22 CV DEVICE CHECK Lead Channel Setting Pacing Amplitude 1.800 CV DEVICE CHECK Lead Channel Setting Pacing Pulse Width 0.4 CV DEVICE CHECK Arias Setting Mode (NBG Code) VVI CV DEVICE CHECK Arias Setting Lower Rate Limit 40 CV DEVICE CHECK Therapy Statistic Recent Shocks Delivered 0 CV DEVICE CHECK Therapy Statistic Recent Shocks Aborted 0 CV DEVICE CHECK Therapy Statistic Recent ATP Delivered 0 CV DEVICE CHECK Shock Measured Impedance 85 CV DEVICE CHECK Zone Setting Type Category Zone_ATAF CV DEVICE CHECK Rate 200 CV DEVICE CHECK Zone Setting Status Monitor CV DEVICE CHECK Zone ID 7 CV DEVICE CHECK Zone Setting Type Category VF CV DEVICE CHECK Rate 200 CV DEVICE CHECK Therapies Burst,40.0J,40.0J, 40.0J x 6 CV DEVICE CHECK Zone Setting Status On CV DEVICE CHECK Zone ID 8 CV DEVICE CHECK Zone Setting Type Category VT CV DEVICE CHECK Rate 150 CV DEVICE CHECK Zone Setting Status Monitor CV DEVICE CHECK Zone ID 9 CV DEVICE CHECK Zone Setting Type Category VT CV DEVICE CHECK Zone Setting Status Inactive CV DEVICE CHECK Zone ID 10 CV DEVICE CHECK Date of Service 2024-09-04 CV DEVICE CHECK Anatomical Region Laterality Modality Device Interroga tion 08/22/2024 1:05 AM EDT Impressions 09/04/2024 10:54 AM EDT Normal Remote: No Events * Normal Device Function * Alerts or events: None * Battery: Battery is at 84%, * Sensing, impedance and thresholds reviewed * Programmed parameters reviewed * Presenting rhythm reviewed * Heart Rate Histograms reviewed * No significant changes noted Heart Failure Diagnostic: Stable * Heart failure diagnostics assessed through the device * Status: Stable * No overt HF present Narrative Procedure Note Russell Villalobos MD - 09/04/2024 IMPRESSION: Normal Remote: No Events * Normal Device Function * Alerts or events: None * Battery: Battery is at 84%, * Sensing, impedance and thresholds reviewed * Programmed parameters reviewed * Presenting rhythm reviewed * Heart Rate Histograms reviewed * No significant changes noted Heart Failure Diagnostic: Stable * Heart failure diagnostics assessed through the device * Status: Stable * No overt HF present us Russell Villalobos MD CV IMPLANTABLE CARDIAC DEVICE PROCEDURES Final Result * Hepatic function panel (08/27/2024 8:23 AM EDT) Total Protein 7.2 6.0 - 8.0 g/dL LAB CHEMISTRY METHOD 08/27/2024 9:53 AM EDT [facility] Albumin 3.5 3.2 - 5.0 g/dL LAB CHEMISTRY METHOD 08/27/2024 9:53 AM [facility] Total Bilirubin 0.5 0.0 - 1.4 mg/dL LAB CHEMISTRY METHOD 08/27/2024 9:53 AM [facility] Bilirubin, Direct 0.1 0.0 - 0.3 mg/dL LAB CHEMISTRY METHOD 08/27/2024 9:53 AM [facility] Bilirubin, Indirect 0.4 0.0 - 1.1 mg/dL LAB CHEMISTRY METHOD 08/27/2024 9:53 AM [facility] ALT (SGPT) 23 10 - 60 unit/L LAB CHEMISTRY METHOD 08/27/2024 9:53 AM [facility] AST (SGOT) 18 10 - 42 unit/L LAB CHEMISTRY METHOD 08/27/2024 9:53 AM [facility] Alkaline Phosphatase 74 42 - 121 unit/L LAB CHEMISTRY METHOD 08/27/2024 9:53 AM [facility] Blood Venous blood specimen / Unknown Venipuncture / Unknown 08/27/2024 8:23 AM EDT 08/27/2024 8:59 AM EDT us Hazel PASTRANA LAB BLOOD ORDERABLES Final Result [facility] [address] [place] [address], [place] [phone] * POC glucose manually resulted (08/20/2024 10:53 AM EDT) Pathologist [facility] Glucose POC 150 mg/dL Comment:Fasting Blood Capillary blood specimen / Unknown 08/20/2024 10:53 AM EDT Hazel PASTRANA POINT OF CARE TEST ENTER/ED IT ORDERABLES Final Result * (ABNORMAL) Basic metabolic panel (08/11/2024 7:39 AM EDT) [facility] Sodium 138 133 - 145 mmol/L LAB CHEMISTRY METHOD 08/11/2024 9:33 AM [facility] Potassium 4.6 3.5 - 5.5 mmol/L LAB CHEMISTRY METHOD 08/11/2024 9:33 AM [facility] Chloride 108 96 - 110 mmol/L LAB CHEMISTRY METHOD 08/11/2024 9:33 AM [facility] CO2 28 21 - 32 mmol/L LAB CHEMISTRY METHOD 08/11/2024 9:33 AM [facility] Anion Gap 2(L) 3 - 11 LAB CHEMISTRY METHOD 08/11/2024 9:33 AM [facility] Glucose 136(H) 70 - 100 mg/dL LAB CHEMISTRY METHOD 08/11/2024 9:33 AM [facility] BUN 25 5 - 25 mg/dL LAB CHEMISTRY METHOD 08/11/2024 9:33 AM [facility] Creatinine 1.29 0.70 - 1.30 mg/dL LAB CHEMISTRY METHOD 08/11/2024 9:33 AM [facility] eGFR 59(L) >=60 mL/min/1. 73m2 LAB CHEMISTRY METHOD 08/11/2024 9:33 AM [facility] Comment:Calculation based on the Chronic Kidney Disease Epidemiology Collaboration (CKD-EPI) equation refit without adjustment for race. BUN/Creatinine Ratio 19.4 LAB CHEMISTRY METHOD 08/11/2024 9:33 AM EDT [facility] Calcium 8.9 8.5 - 10.5 mg/dL LAB CHEMISTRY METHOD 08/11/2024 9:33 AM EDT [facility] Blood Venous blood specimen / Unknown Venipuncture / Unknown 08/11/2024 7:39 AM EDT 08/11/2024 8:58 AM EDT Sonal Steiner NP LAB BLOOD ORDERABLES Final Result [facility] [address] [place] [address], [place] [phone] * (ABNORMAL) Lipid panel with reflex to direct LDL (05/15/2024 7:36 AM EST) Cholesterol 109 0 - 200 mg/dL LAB CHEMISTRY METHOD 05/15/2024 10:09 AM [facility] Triglycerides 357(H) 0 - 150 mg/dL LAB CHEMISTRY METHOD 05/15/2024 10:09 AM [facility] HDL 24(L) >=40 mg/dL LAB CHEMISTRY METHOD 05/15/2024 10:09 AM [facility] LDL Calculated 14 0 - 100 mg/dL LAB CHEMISTRY METHOD 05/15/2024 10:09 AM [facility] VLDL Cholesterol Bennie 71.4 mg/dL LAB CHEMISTRY METHOD 05/15/2024 10:09 AM EST [facility] Non HDL Chol. (LDL+VLDL) 85 <145 mg/dL LAB CHEMISTRY METHOD 05/15/2024 10:09 AM [facility] Chol/HDL Ratio 4.5(H) 0.0 - 4.4 LAB CHEMISTRY METHOD 05/15/2024 10:09 AM [facility] Blood Venous blood specimen / Unknown Venipuncture / Unknown 05/15/2024 7:36 AM EST 05/15/2024 7:36 AM EST Hazel PASTRANA LAB BLOOD ORDERABLES Final Result Performing Organization Address [facility]/ZIP Co de Phone Number [facility] [address] [place] [address], [place] [phone] * (ABNORMAL) Microalbumin creatinine urine ratio (05/15/2024 7:36 AM EST) Pathologist [facility] Creatinine, Urine 146.0 mg/dL LAB CHEMISTRY METHOD 05/15/2024 11:09 AM EST [facility] Microalb, Ur 328.0(H) 0.0 - 29.0 mg/L LAB CHEMISTRY METHOD 05/15/2024 11:09 AM EST [facility] Microalb/Crea t Ratio 225(H) <30 mg/g creat LAB CHEMISTRY METHOD 05/15/2024 11:09 AM EST [facility] Urine Urine specimen from urethra / Unknown Non-blood Collection / Unknown 05/15/2024 7:36 AM EST 05/15/2024 7:36 AM EST Hazel PASTRANA LAB URINE ORDERABLES Final Result Performing Organization Address City/[facility]/ZIP Co de Phone Number [facility] [address] [place] [address], [place] [phone] * Falls Risk Assessment (08/14/2023) Falls Risk Assessment abstracted Historical Provider HEALTH MAINTENANCE Final Result * Diabetes Eye Exam (04/18/2023) Diabetes: Annual Retina Eye Exam abstracted Historical Provider HEALTH MAINTENANCE Final Result * Depression Screening (04/04/2023) Depression Screening abstracted Historical Provider HEALTH MAINTENANCE Final Result * Colonoscopy (03/17/2013) Colonoscopy no interpretation , abstracted Anatomical Region Laterality Modality Other us Historical Provider HEALTH MAINTENANCE Final Result from Last 3 Months or Most Recently Relevant to Health Maintenance Insurance MEDICARE [facility] Care Teams Tile Sorter Relationship Specialty Start Date End Date Alee Toledo MD [address] [place] [address] PCP - General Internal Medicine 03/04/18
== END 2024-11-18 09:10 | disposition home or self-care (01) ==
LOC: HO.HSM 08:33
PROVIDERS: PCP Internal Medicine; Visit Provider Registered Nurse
DX: G30.9 Alzheimer's disease, unspecified (principal); F02.80 Dementia in other diseases classified elsewhere, unspecified severity, without behavioral disturbance, psychotic disturbance, mood disturbance, and anxiety
CPT/HCPCS: 99213

== ENCOUNTER → 2024-11-18 08:33 | Outpatient (BNVA) | payer MEDICARE, OTHER, SELFPAY | PROVIDERS: PCP Internal Medicine; Visit Provider Registered Nurse | DX: G30.9 Alzheimer's disease, unspecified (principal); F02.80 Dementia in other diseases classified elsewhere, unspecified severity, without behavioral disturbance, psychotic disturbance, mood disturbance, and anxiety | CPT/HCPCS: 99212 ==